=== PATIENT | female | born 1960 | race Caucasian/White ===

== ENCOUNTER 2024-07-09 20:27 | Inpatient (IN) | payer BC, MEDICARE, OTHER, SELFPAY ==
--- NOTE | 2024-07-09 20:30 | XR_ITS ---
Examination: AP chest single view Technique: AP portable upright chest single view Exam date and time: July 09, 20242 hrs. Indications: Shortness of breath wheezing today. Findings: Normal heart size Lungs are clear. The osseous structures are intact Impression: No active disease
--- NOTE | 2024-07-09 20:30 | PD.EDRME ---
Rapid Medical Screening Exam RME Arrival date/time: 07/09/24 20:27 Chief Complaint: Shortness of Breath/Dyspnea Time Seen by Provider: 07/09/24 20:30 Vital signs: Vital Signs Temperature 99.1 F 07/09/24 20:34 Pulse Rate 108 H 07/09/24 20:34 Respiratory Rate 22 H 07/09/24 20:34 Blood Pressure 129/69 07/09/24 20:34 Pulse Oximetry (%) 92 L 07/09/24 20:34 Oxygen Delivery Method Room Air 07/09/24 20:34 RME Narrative: 63-year-old female with history of 50-year smoker but no diagnosis of COPD, asthma using inhalers coming to the emergency department by ambulance after she has had increasing wheezing today despite multiple use of her inhalers. The patient states this is increased worse than her asthma attacks. She did not smoke today because she was having too much wheezing. The patient denies fevers, recent travel, and lower extremity swelling. She stated she had trouble sleeping last night. No nausea vomiting or diarrhea. She could not go out and walk her dogs today and thus when she came to the emergency department. No fevers, sick contacts, positive nonproductive cough that is making her wheezing worse, and no neck pain.
[2024-07-09 20:34] VITALS: BP 129/69; PULSE 108; RESP 22; TEMP 37.3; O2SAT 92
[2024-07-09 20:35] VITALS: PULSE 113; RESP 21; O2SAT 89; BMI 29.0
[2024-07-09] MEDS: Magnesium Sulfate 1 gm Ivpb 1 GM/100 ML BAG IV (20:48)
[2024-07-09] MEDS: MethylPREDNISolone SOD SUCC 62.5 MG/ML 2ML VIAL 125 MG IVP (20:48)
[2024-07-09 21:06] VITALS: PULSE 106; RESP 20; O2SAT 96
[2024-07-09] MEDS: ALBUTEROL/IPRATROPIUM (Duoneb) RT SOL 3 ML NEBU INH (21:09)
[2024-07-09 21:50] LABS: Basophils # (Auto) 0.1 Thou/mm3 (0.0-0.2); Basophils % (Auto) 1 % (0-2.5); Eosinophils # (Auto) 0.3 Thou/mm3 (0.0-0.5); Eosinophils % (Auto) 3 % (0-10); Hemoglobin 12.3 g/dL (12.0-16.0); Immature Granulocytes % (Auto) 0 % (0-0); Immature Granulocytes Auto 0.03 Thou/mm3 (0.00-0.00); Lymphocytes % (Auto) 19 % (10-50); Mean Corpuscular HGB Conc 33.2 g/dl (31.0-37.0); Mean Corpuscular Hemoglobin 29.7 pg (25.0-35.0); Mean Corpuscular Volume 89 fL (80-100); Monocytes # (Auto) 0.8 Thou/mm3 (0.0-0.8); Monocytes % (Auto) 7 % (0-12); Neutrophils # (Auto) 7.3 Thou/mm3 (1.8-7.7); Neutrophils % (Auto) 70 % (37-80); Nucleated Red Blood Cell % 0 /100 WBC (0); Platelet Count 190 Thou/mm3 (140-440); Red Blood Count 4.14 Miln/mm3 (4.00-5.20); White Blood Count 10.4 Thou/mm3 (3.6-11.0)
[2024-07-09 22:01] LABS: Respiratory Syncytial Virus Ag Negative (Negative)
[2024-07-09 22:21] LABS: B-Type Natriuretic Peptide 59 pg/mL (0-100)
[2024-07-09 22:22] LABS: Alanine Aminotransferase 13 U/L (10-49); Albumin, Serum 4.1 gm/dL (3.4-4.8); Albumin/Globulin Ratio 1.8 (1.2-2.2); Alkaline Phosphatase 88 U/L (46-116); Anion Gap 7 (7-16); Aspartate Amino Transferase 15 U/L (0-34); BUN/Creatinine Ratio 15 Ratio (12-20); Bilirubin,Total 0.3 mg/dL (0.3-1.2); Blood Urea Nitrogen 12 mg/dL (9-23); Calcium 9.6 mg/dL (8.3-10.6); Calcium (Corrected) 9.6 mg/dL (8.5-10.1); Carbon Dioxide 25.8 mMol/L (20.0-31.0); Chloride 110 mMol/L (98-107); Creatinine (Component) 0.8 mg/dL (0.6-1.3); Estimated Creatinine Clearance 75.5 mL/min (>60); Globulin 2.3 gm/dL (2.3-3.5); Glucose 116 mg/dL (74-106); Osmolality,Calculated 285 (275-295); Potassium 3.8 mMol/L (3.4-5.1); Sodium 143 mMol/L (136-145); Total Protein 6.4 gm/dL (5.7-8.2); Troponin I < 0.020 ng/mL (0.0-0.045); eGFR > 60 See Note
[2024-07-09 22:40] VITALS: BP 119/67; PULSE 102; RESP 27; O2SAT 96
--- NOTE | 2024-07-09 23:39 | XR_ITS ---
Examination: CTA chest with intravenous contrast 2-D reconstructions 3-D reconstructions, vascular Date and time of exam: July 10, 2024 0009 hrs. Indications: Shortness of breath chest pain today, diagnosis asthma COPD 10 years CTDI: vol (mGy) 13.86 DLP: (mGycm) 382 Technique: Multiple axial sections of the thorax have been obtained. 3 mm slice thickness, from below the hemidiaphragms to above the apices of the lungs. Mediastinal and lung density settings have been obtained. 2-D sagittal and coronal reconstructions. 3-D angiographic renderings, 3-D volume renderings, 3D post processing, vascular maximum intensity projections obtained. Contrast administered is 100 cc Isovue-370. Intravenous Low dose protocols were performed. One or more of the following dose reduction techniques were used; automated exposure control, adjustment of the mA and/or KV according to patient size, use of iterative reconstruction technique. Findings: No thoracic aortic aneurysmal dilatation Pulmonary artery segments are not enlarged No pulmonary artery emboli Nodule with dense calcification in the left upper lobe, 13 mm COPD with multiple areas of airspace destruction No lobar pneumonia no pulmonary edema or pleural disease No visualized liver or splenic lesion No gallstones Severe osteopenia with kyphosis dorsal spine Impression: COPD Negative for pulmonary artery emboli No pneumonia or pulmonary edema
[2024-07-09] MEDS: KETOROLAC INJ 30 MG/ML VIAL IVP (23:52)
[2024-07-10] VITALS (18 sets, daily range): BP systolic 95–137; BP diastolic 59–76; PULSE 87–120; RESP 13–34; TEMP 36.1–37.2; O2SAT 85–99; BMI 29.5
--- NOTE | 2024-07-10 01:01 | PC.NURSE ---
Pt ambulated to the rest room approx 50 ft and became short of breathing, wheezing, and tachypneic. pt desatted to 85-87% on room air. Pt placed on 2l NC saturation improved to 91-92%. Dr Calero informed and new orders provided. Rt called to bedside, verbal order for breathing tx given by .
[2024-07-10] MEDS: SODIUM CHLORIDE RT SOL 0.9% 3 ML NEBU INH (01:15)
[2024-07-10] MEDS: ALBUTEROL RT 2.5 MG/0.5 ML NEBU 10 MG INH (01:16)
[2024-07-10] MEDS: IPRATROPIUM RT 0.5 MG/ 2.5 ML NEBU 1 MG INH (01:16)
--- NOTE | 2024-07-10 01:23 | PRELIM_ITS ---
CT angiogram of the chest with intravenous contrast (axial sections with sagittal and coronal reforma ts) July 10, 2024 0009 hours Clinical History: 63 yo with asthma and shortness of breath. Techniq ue:Helical axial sections with sagittal and coronal reformats of the chest were obtained with intrave nous contrast. Iterative reconstruction technique was employed to reduce patient radiation exposure. 3D/MIP reconstructed images were also provided. Comparison: None.Findings:There is no filling defect within the pulmonary artery divisions to suggest pulmonary thromboembolism. The mediastinum demonstra noble no evidence of mass or lymphadenopathy. The thoracic aorta is unremarkable. There is no pericardi al effusion. Mild lung emphysema. No evidence of pleural effusion or pneumothorax.Partially calcified nodule in the left upper lobe measures 1.6 cm.Degenerative changes of the imaged portions of the spi ne. No acute fractures.The visualized upper abdominal viscera are unremarkable.Impression:No CT evide nce of pulmonary thromboembolism.Partially calcified nodule in the left upper lobe, consider correlat ion with PET.Mild lung emphysema. Report Electronically Signed By: Federico Murdock 07/10/2024 1:22:4 3 AM [EST]
--- NOTE | 2024-07-10 01:28 | EDNOTE_ITS ---
ED SOB =RME/HPI General Chief Complaint: Shortness of Breath/Dyspnea Stated Complaint: SOB Time Seen by Provider: 07/09/24 20:30 Arrival date/time: 07/09/24 20:27 RME / HPI RME / HPI Narrative: Dr. Nunez's Main ED Evaluation: 63-year-old female with history of 50-year smoker but no diagnosis of COPD, asthma using inhalers coming to the emergency department by ambulance after she has had increasing wheezing today despite multiple use of her inhalers. The patient states this is increased worse than her asthma attacks. She did not smoke today because she was having too much wheezing. The patient denies fevers, recent travel, chest pain, and lower extremity swelling. She stated she had trouble sleeping last night. No nausea vomiting or diarrhea. She could not go out and walk her dogs today and thus when she came to the emergency department. No fevers, sick contacts, positive nonproductive cough that is making her wheezing worse, and no neck pain. Related Data Home Medications ?Medication ?Instructions ?Recorded ?Confirmed levothyroxine 112 mcg tablet 112 mcg PO DAILY ##0 03/25/13 (Synthroid) Allergies Allergy/AdvReac Type Severity Reaction Status Date / Time acetaminophen Allergy Mild NAUSEA Verified 07/09/24 20:43 VOMTING hydrocodone Allergy Mild NAUSEA Verified 07/09/24 20:43 VOMTING codeine Allergy Unknown Verified 07/09/24 20:43 Review of Systems Review of Systems Systems Reviewed: All systems reviewed, normal except as documented Past Medical History Past Medical History CARDIAC: Negative Cardiac Disorders or Congestive Heart Failure RESPIRATORY: Positive Chronic Obstructive Pulmonary Disease (COPD) and Asthma GENITOURINARY: Negative Renal Disease ENDOCRINE: Negative Diabetes Mellitus Type 1 or Diabetes Mellitus Type 2 HEMATOLOGIC: Negative Sickle Cell Disease Social History SMOKING STATUS: Heavy (> 1 pack/day) ED Exam Narrative Physical exam: Patient acute distress, wheezing audibly at triage. General General appearance: Present alert, in distress and other Eye Eye exam: Present scleral icterus and other (No) Neck Neck exam: Present normal inspection and other; Absent meningismus Respiratory Respiratory exam: Present respiratory distress and prolonged expiratory phase; Absent wheezes, stridor or accessory muscle use Abdominal Exam Abdominal exam: Present soft; Absent distention, tenderness, guarding, rebound, rigidity or normal bowel sounds Extremities Exam Extremities exam: Absent normal inspection, tenderness, normal capillary refill, pedal edema, joint swelling or calf tenderness Neurological Exam Neurological exam: Present alert, oriented X3, CN II-XII intact and normal gait; Absent motor sensory deficit Skin Skin exam: Present warm; Absent normal color, cyanosis, diaphoresis, erythema, pallor or mottled Course Course Course Narrative: CXR is ordered for determining the etiology of shortness of breath. Quality Measures none Orders Category Date Time Status COVID-19 Screening Questionnaire NOW Care 07/10/24 01:[address] Screening NOW Care 07/09/24 23:39 Active Decision to Admit X1 Care 07/10/24 01:34 Active EKG (ED ONLY) *Do not use* NOW Care 07/09/24 20:35 Completed IV [Insert IV] STAT Care 07/09/24 20:[address] angio chest Stat Exams 07/09/24 23:39 Taken CXRP [XR chest 1V portable] Stat Exams 07/09/24 20:30 Completed EKG (ED Only) Stat Exams 07/09/24 20:34 Ordered BNP [B-Type Natriuretic Peptide] Stat Lab 07/09/24 21:42 Completed CBC Stat Lab 07/09/24 21:42 Completed CMP [Comprehensive Metabolic Panel] Stat Lab 07/09/24 21:42 Completed RSV [Respiratory Syncytial Virus Ag] Stat Lab 07/09/24 21:08 Completed Troponin I Stat Lab 07/09/24 21:42 Completed Troponin I Stat Lab 07/10/24 01:34 Ordered ALBUTEROL RT 0.5ml [Proventil Rt 0.5ml] Med 07/10/24 01:02 Discontinued 10 mg INH X1 ONE Albuterol/Ipratr Rt Danna [Duoneb Rt Danna] Med 07/09/24 21:00 Discontinued 3 ml INH X1 ONE Albuterol/Ipratr Rt Danna [Duoneb Rt Danna] Med 07/10/24 00:54 Discontinued 3 ml INH X1 ONE Ipratropium Marlow Rt Danna [Atrovent Rt Danna] Med 07/10/24 01:04 Discontinued 1 mg INH X1 ONE Ketorolac Inj [Toradol Inj] Med 07/09/24 23:43 Discontinued 30 mg IVP X1 ONE Magnesium Sulfate 1 gm Ivpb [Magnesium Sulfate Ivpb] Med 07/09/24 20:37 Discontinued 1 gm in 100 ml IV X1 MethylPREDNISolone.* [SoluMEDROL Inj] Med 07/09/24 20:33 Discontinued 125 mg IVP X1 ONE Sodium Chloride Rt Danna 0.9% [NS Rt Danna 0.9%] Med 07/10/24 01:02 Active 3 ml INH PRN PRN Vital Signs Vital signs: Vital Signs Temperature 99.1 F 07/09/24 20:34 Pulse Rate 108 H 07/09/24 20:34 Respiratory Rate 22 H 07/09/24 20:34 Blood Pressure 129/69 07/09/24 20:34 Pulse Oximetry (%) 92 L 07/09/24 20:34 Oxygen Delivery Method Room Air 07/09/24 20:34 Procedures -ED Smoking Cessation Time Spent Discussing Smoking Cessation w/Patient (min): 5 Patient Acknowledges Need for Cessation: Yes Additional Comments: The patient was counseled as to the multiple risks to their health from continued use of tobacco products. It was explained that continuing to smoke may lead to multiple short and long term acute care registered nurse negative health consequences, including but not limited to mouth/esophageal/lung cancer, COPD, and heart disease. The patient states she/he understands these risks and also understands the options and resources available to them to help them stop smoking. Nicotine replacement therapy, local hotlines, and local resources were discussed as viable options for helping them stop their tobacco use. The total time spent counseling the patient regarding tobacco cessation was 5 minutes. Shortness of Breath / Dyspnea MDM Narrative MDM Narrative:: Patient on arrival treated with 2-3 doses of 1 hour-long DuoNeb. Initially she felt better but upon getting up and walking to the bathroom she drops to 89% on room air. With oxygen she is 93% on 2 L. She is given Solu-Medrol and mag. She does have good airway movement but continues to wheeze. CT angio does not show PE. Chest x-ray without significant pneumonia. Will admit for COPD exacerbation. Patient is a 50-year pack smoker and likely undiagnosed at this time. Patient data External records reviewed:: [facility] previous records (Per chart review, patient has no previous ED visits or admissions to this facility.) Clinical information provided by:: patient Social determinants that could affect healthcare access:: substance use (Pt smokes cigarettes.) Patient has the following chronic illnesses:: COPD, asthma How is presenting disease/condition affected by chronic disease/condition?: exacerbated by Evaluation data The following diagnostics were reviewed and interpreted by me:: lab results, radiology exam(s) and EKG tracing(s) Lab and/or radiology exams considered but not ordered:: none Interpretation Summary: CBC is normal, CMP is normal, BNP is normal, Troponin is negative, RSV is negative, Bedside COVID and Influenza are negative, according to my interpretation. EKG done at 2053, sinus tachycardia, rate of 102, nonspecific ST-T changes in V2 and V3, no elevations or depressions, QTc: 370, No STEMI, no previous EKG available for depression, according to my interpretation. I have personally reviewed the radiology data and agree with the radiologist's interpretation below: Telerad Preliminary Report Draft Patient: JORDON ARTEAGA [employer]. Record#: [id number] Birthdate: 1960 Age/Sex: 63 / F Location: [facility] Attending Dr: Ordering Physician: Date of Service: Procedure(s): Accession Number(s): cc: ~ CT angiogram of the chest with intravenous contrast (axial sections with sagittal and coronal reformats) July 10, 2024 0009 hours Clinical History: 63 yo with asthma and shortness of breath. Technique:Helical axial sections with sagittal and coronal reformats of the chest were obtained with intravenous contrast. Iterative reconstruction technique was employed to reduce patient radiation exposure. 3D/MIP reconstructed images were also provided. Comparison: None. Findings: There is no filling defect within the pulmonary artery divisions to suggest pulmonary thromboembolism. The mediastinum demonstrates no evidence of mass or lymphadenopathy. The thoracic aorta is unremarkable. There is no pericardial effusion. Mild lung emphysema. No evidence of pleural effusion or pneumothorax. Partially calcified nodule in the left upper lobe measures 1.6 cm. Degenerative changes of the imaged portions of the spine. No acute fractures. The visualized upper abdominal viscera are unremarkable. Impression: No CT evidence of pulmonary thromboembolism. Partially calcified nodule in the left upper lobe, consider correlation with PET. Mild lung emphysema. Report Electronically Signed By: Federico Murdock 07/10/2024 1:22:43 AM [EST] ------- [facility] Report Signed Patient: JORDON ARTEAGA [employer]. Record#: [id number] Birthdate: 1960 Age/Sex: 63 / F Location: [facility] Attending Dr: Ordering Physician: No Nunez MD Date of Service: 07/09/24 Procedure(s): XR chest 1V portable Accession Number(s): [id number] cc: Ayaz Nava MD; No Nunez MD; Sharmila Mckeon MD~ Examination: AP chest single view Technique: AP portable upright chest single view Exam date and time: July 09, 2024 2042 hrs. Indications: Shortness of breath wheezing today. Findings: Normal heart size Lungs are clear. The osseous structures are intact Impression: No active disease Dictated By: Ayaz Nava MD Signed By: <Electronically signed by Ayaz Nava MD in [place]> 07/09/242111 Medications / Prescriptions Medications or Prescriptions considered but not ordered:: none Medication administrations:: Medication Administration History Sodium Chloride (Sodium Chloride Rt Danna 0.9% 3 Ml Nebu) 3 ml INH PRN PRN PRN Reason: SOLN Stop: 08/09/24 01:01 Last Admin: 07/10/24 01:15 Dose: 3 ml Documented By: ANTOINETTE Discontinued Medications Albuterol (Albuterol Rt 2.5 Mg/0.5 Ml Nebu) 10 mg INH X1 ONE Stop: 07/10/24 01:03 Last Admin: 07/10/24 01:16 Dose: 10 mg Documented By: ANTOINETTE Albuterol/Ipratropium (Albuterol/Ipratropium (Duoneb) Rt Danna 3 Ml Nebu) 3 ml INH X1 ONE Stop: 07/09/24 21:01 Last Admin: 07/09/24 21:09 Dose: 3 ml Documented By: ANTOINETTE Albuterol/Ipratropium (Albuterol/Ipratropium (Duoneb) Rt Danna 3 Ml Nebu) 3 ml INH X1 ONE Stop: 07/10/24 00:55 Last Admin: 07/10/24 01:02 Dose: Not Given Documented By: YAMILE Non-Admin Reason: Discontinued Magnesium Sulfate/Dextrose (Magnesium Sulfate Ivpb) 1 gm in 100 mls @ 100 mls/hr IV X1 ONE Stop: 07/09/24 21:36 Last Infusion: 07/09/24 21:59 Dose: Infused Documented By: Admin: 07/09/24 20:48 Dose: 100 mls/hr Documented By: YAMILE Ipratropium Marlow (Ipratropium Rt 0.5 Mg/ 2.5 Ml Nebu) 1 mg INH X1 ONE Stop: 07/10/24 01:05 Last Admin: 07/10/24 01:16 Dose: 1 mg Documented By: ANTOINETTE Ketorolac Tromethamine (Ketorolac Inj 30 Mg/Ml Vial) 30 mg IVP X1 ONE Stop: 07/09/24 23:44 Last Admin: 07/09/24 23:52 Dose: 30 mg Documented By: YONY Methylprednisolone Sodium Succinate (Methylprednisolone Sod Succ 62.5 Mg/Ml 2ml Vial) 125 mg IVP X1 ONE Stop: 07/09/24 20:34 Last Admin: 07/09/24 20:48 Dose: 125 mg Documented By: YAMILE see above Consultations Consultation(s) initiated? (list below): Yes Consultation #1 (Physician, Specialty, Details): Discussed case with [the resident physician, attending Dr. Tran] from Hospitalist service regarding admission. Discussed patients ED course, exam findings, labs, and radiology results. The Hospitalist [agrees] to accept the patient for admission. Time: 01:33 Diagnosis Shortness of Breath Differential Diagnosis: acute exacerbation of chronic obstructive airways disease, congestive heart failure, community acquired pneumonia, asthma with exacerbation and pulmonary embolism Most likely diagnosis given after review of the tests above:: see below Admission Indicated Admission indicated?: indicated Explain why admission is indicated or not indicated:: Patient hypoxic despite multiple 2-3 doses of DuoNebs, magnesium, and Solu- Medrol. Admission Request Was there a request for admission?: Yes Admission Attestation Admission request attestation: Discussed case with [] from Hospitalist service regarding admission. Discussed patients ED course, exam findings, labs, and radiology results. The Hospitalist [agrees,declines] to accept the patient for admission. Disposition Plan Disposition Plan: Admit Critical Care Time Critical Care Time Critical Care Time: Yes Total Critical Care Time (min.): 45 Attestation: The high probability of sudden, clinically significant deterioration in the patient?s condition required the highest level of my preparedness to intervene urgently. The services I provided to this patient were to treat and/or prevent clinically significant deterioration. Services included the following: chart data review, reviewing nursing notes and/or old charts, documentation time, senior product consultant collaboration regarding findings and treatment options, medication orders and management, direct patient care, vital sign assessments and ordering, interpreting and reviewing diagnostic studies and lab tests. Aggregate critical care time includes only time during which I was engaged in work directly related to the patient?s care, as described above, whether at bedside or elsewhere in the Emergency Department. It did not include time spent performing other reported procedures or the services of residents, students, nurses or physician assistants. Discharge Plan Plan Patient Disposition: Admit Acute Care w/in Hospital Patient condition on transfer: Stable Prescriptions/Referrals Prescriptions/Med Rec: No Action levothyroxine [Synthroid] 112 MCG tablet 112 mcg PO DAILY Qty: 0 Referrals: Sharmila Mckeon MD [Primary Care Provider] - In 1 week Problem List Clinical Impression: Acute and chronic respiratory failure with hypoxia, Asthma with exacerbation, History of cigarette smoking Patient/Caregiver Discharge Instructions Print Language: Malaysian Stand Alone Forms: Staci Award Info., Patient Portal Info Letter
--- NOTE | 2024-07-10 02:16 | ESHP_ITS ---
Documentation for date of: 07/10/24 [facility] History of Present Illness History of present illness: The patient is a 63-year-old female with a past medical history of asthma/COPD and hypothyroidism who presented to the ED on 07/09/2024 with difficulty breathing and wheezing that started a few hours prior to presentation. Patient was in her usual state of health until about 4 hours prior to coming to the ED when she had states that she was having increasing wheezing and shortness of breath. She reports that she had been out for dinner with her and might have been exposed to some cold, possible that she is in the environment and by the time she got back home she noted she was having more wheezing than his usual for her. She also endorses cough that is nonproductive, and not bothersome but present enough to be noted. She denies fever, chest pain or palpitations. The patient has a 40-yxsc-qaof smoking history and still smokes about a pack a day, states that she is trying to quit. For asthma/COPD she only uses her rescue albuterol inhaler and says she has been using for many years and has been able to control her symptoms effectively. ED course: In the ED, patient was afebrile and normotensive was noted to be saturating as low as 85% on room air. She was started on breathing treatments along treatments but wheezing was still persistent. She was initially on 3 L of oxygen and then 2 L, patient was noticeably desatting every time she tried to walk to the bathroom. CBC and CMP unremarkable. COVID influenza and RSV negative. Chest x-ray was negative for pneumonia and CTA negative for pulmonary embolism. The patient also received IV Solu-Medrol 125 mg mag sulfate 1 g in the ED and has been admitted for management of acute hypoxic respiratory failure and COPD exacerbation. PMHx-asthma/COPD, hypothyroidism PSHx-cervical discectomy Social ziboshp-15-rqze-year smoking history, social drinking, no illicit drugs Allergies-Tylenol, hydrocodone Home meds-levothyroxine, albuterol inhaler Review of Systems Review of Systems Narrative Review of Systems: GENERAL: Denies fevers/chills or diaphoresis. HEENT: Denies headache or visual/hearing changes. Denies nasal discharge. NEURO: Denies unusual weakness or difficulty speaking. CARDIO: Denies chest pain or palpitations. PULM: Admits shortness of breath, coughing and wheezing. GI: Denies abdominal pain, N/V/C/D/reflux/gas, bright red blood per rectum or melena. Reports having BMs. URO: Denies burning/itching/pain/urinary changes. MSK/EXT/SKIN: Denies joint/skeletal/muscle pain, issues/changes in upper or lower extremities, itchiness, or superficial pain. PSYCH: Cooperative, pleasant mood & affect. Exam Vital Signs Temp Pulse Resp BP Pulse Ox O2 Del Method O2 Flow Rate 99.1 F 87 16 119/67 94 L Room Air 2 07/09/24 20:34 07/10/24 01:16 07/10/24 01:13 07/09/24 22:40 07/10/24 01:13 07/10/24 00:58 07/10/24 01:13 Narrative Exam GENERAL: AAOX3 NEURO: CALIBRATION SPECIALIST grossly intact, moves extremities x4 HEENT: Moist mucosa. Eyes open, symmetrical, & clear CARDIO: No chest pain on palpation. Heart RRR, no obvious murmurs PULM: Coughing but not tachypneic. Diffuse wheezing in all lung crawley. GI: Abdomen soft, nondistended, no pain on palpation. BSx4 URO/SHAREPOINT SOLUTIONS DEVELOPER:: No further abnormalities noted. SKIN/MSK/EXT: No wounds/rashes/edema/amputations, no pain on palpation. Pedal pulses present B/L Results: Labs 07/10/24 01:39 07/09/24 21:42 Labs: Short CBC 07/09/24 Range/Units 21:42 WBC 10.4 (3.6-11.0) Thou/mm3 Hgb 12.3 (12.0-16.0) g/dL Hct 37.0 (36.0-46.0) % Plt Count 190 (140-440) Thou/mm3 BMP 07/09/24 21:42 Sodium 143 Potassium 3.8 Chloride 110 H Carbon Dioxide 25.8 BUN 12 Creatinine 0.8 Glucose 116 H Calcium 9.6 Cardiac Enzymes 07/09/24 Range/Units 21:42 Troponin I < 0.020 (0.0-0.045) ng/mL Liver Function 07/09/24 Range/Units 21:42 Total Bilirubin 0.3 (0.3-1.2) mg/dL AST 15 (0-34) U/L ALT 13 (10-49) U/L Alkaline Phosphatase 88 (46-116) U/L Albumin 4.1 (3.4-4.8) gm/dL Quality Measures Quality Measures none Advance care planning discussed with:: patient Medications Home Medications and Allergies Home Medications ?Medication ?Instructions ?Recorded ?Confirmed ?Type levothyroxine 112 mcg tablet 112 mcg PO DAILY ##0 03/25/13 07/10/24 History (Synthroid) Allergies Allergy/AdvReac Type Severity Reaction Status Date / Time acetaminophen Allergy Mild NAUSEA Verified 07/09/24 20:43 VOMTING hydrocodone Allergy Mild NAUSEA Verified 07/09/24 20:43 VOMTING codeine Allergy Unknown Verified 07/09/24 20:43 Visit Medications Albuterol/Ipratropium (Albuterol/Ipratropium (Duoneb) Rt Danna 3 Ml Nebu) 3 ml INH Q6HRRT [facility] Stop: 08/09/24 06:59 Albuterol/Ipratropium (Albuterol/Ipratropium (Duoneb) Rt Danna 3 Ml Nebu) 3 ml INH Q2HR PRN PRN Reason: SHORTNESS OF BREATH OR WHEEZE Stop: 08/09/24 02:05 Azithromycin (Azithromycin 250 Mg Tablet) 250 mg PO QDAY [facility] Stop: 07/15/24 08:59 Heparin Sodium (Porcine) (Heparin Sod Inj 5000 Unit/Ml Vial) 5,000 unit SC Q12HR JOSE Stop: 07/24/24 08:59 Ondansetron HCl (Ondansetron Inj 2 Mg/Ml Inj 2 Ml) 4 mg IV Q6H PRN; Protocol PRN Reason: NAUSEA OR VOMITING Stop: 08/09/24 02:02 Prednisone (Prednisone 20 Mg Tablet) 40 mg PO QDAY [facility] Stop: 07/15/24 08:59 Sodium Chloride (Sodium Chloride Rt Danna 0.9% 3 Ml Nebu) 3 ml INH PRN PRN PRN Reason: SOLN Stop: 08/09/24 01:01 Last Admin: 07/10/24 01:15 Dose: 3 ml Discontinued Medications Albuterol (Albuterol Rt 2.5 Mg/0.5 Ml Nebu) 10 mg INH X1 ONE Stop: 07/10/24 01:03 Last Admin: 07/10/24 01:16 Dose: 10 mg Albuterol/Ipratropium (Albuterol/Ipratropium (Duoneb) Rt Danna 3 Ml Nebu) 3 ml INH X1 ONE Stop: 07/09/24 21:01 Last Admin: 07/09/24 21:09 Dose: 3 ml Albuterol/Ipratropium (Albuterol/Ipratropium (Duoneb) Rt Danna 3 Ml Nebu) 3 ml INH X1 ONE Stop: 07/10/24 00:55 Last Admin: 07/10/24 01:02 Dose: Not Given Azithromycin (Azithromycin 250 Mg Tablet) 500 mg PO X1 ONE Stop: 07/10/24 02:07 Magnesium Sulfate/Dextrose (Magnesium Sulfate Ivpb) 1 gm in 100 mls @ 100 mls/hr IV X1 ONE Stop: 07/09/24 21:36 Last Infusion: 07/09/24 21:59 Dose: Infused Ipratropium [place] (Ipratropium Rt 0.5 Mg/ 2.5 Ml Nebu) 1 mg INH X1 ONE Stop: 07/10/24 01:05 Last Admin: 07/10/24 01:16 Dose: 1 mg Ketorolac Tromethamine (Ketorolac Inj 30 Mg/Ml Vial) 30 mg IVP X1 ONE Stop: 07/09/24 23:44 Last Admin: 07/09/24 23:52 Dose: 30 mg Methylprednisolone Sodium Succinate (Methylprednisolone Sod Succ 62.5 Mg/Ml 2ml Vial) 125 mg IVP X1 ONE Stop: 07/09/24 20:34 Last Admin: 07/09/24 20:48 Dose: 125 mg Assessment & Plan Assessment Summary: The patient is a 63-year-old female with a past medical history of asthma/COPD and hypothyroidism who presented to the ED on 07/09/2024 with difficulty breathing and wheezing that started a few hours prior to presentation. She has been admitted for management of acute hypoxic respiratory failure, secondary to COPD exacerbation. #Acute hypoxic respiratory failure #COPD exacerbation #History of COPD/asthma The patient presented with a couple hours of increasing wheezing and difficulty breathing. Patient has been out for dinner suspect that she might have been exposed to cold as well as other environmental factors/triggers and got home, noticed that she had more wheezing and it was increasingly difficult for her to breathe. She also endorsed a cough that is nonproductive but denies fever, chest pain or palpitations. Patient has a history of COPD, with a [id number] smoking history, still smokes and is trying to quit but only uses a rescue inhaler. Chest x-ray was negative as well as CTA. In the ED, patient received IV Solu-Medrol as well as multiple breathing treatments as presents with of oxygen. Plan: -Admit to med telemetry -Breathing treatment scheduled and as needed -Azithromycin 500 mg x 1 and then, 250 mg daily for 4 days -IV Solumedrol 40mg BID -Mucinex PRN -Incentive spirometry -Oxygen as needed #History of hypothyroidism Patient has a history of hypothyroidism and is on levothyroxine 112 mcg daily. Plan: -TSH -Resume home med Health maintenance: Dispo: MedTele Diet: Regular diet DVT: SC Heparin Natarajan: None Lines: Peripheral Med Rec: Pending, f/u PT: Not ordered Code: Full Case was discussed with attending physician, Dr Chelsea Thompson MD PGY-1 Attending Provider Attestation/Addendum Face to face evaluation was performed by me. I have personally seen and examined the patient. I discussed the assessment and plan with the entire medicine team. I reviewed available medical records, imaging studies, laboratory results. I agree with the above subjective data, objective findings, assessment and plan except as corrected by me or noted below Acute hypoxic respiratory failure Suspected COPD and /or asthma with exacerbation Wheezing and SOB - IV steroids, empiric aAbxs, scheduled breathing treatments, wean O2 as able to - Not sure if pure COPD or + asthma, needs Pulmonary follow up afer dc -CTA pending! rule out PE, no infiltrates on CTA upon my review. -DVT ppx
[2024-07-10 02:21] LABS: Troponin I < 0.020 ng/mL (0.0-0.045)
[2024-07-10] MEDS: AZITHROMYCIN 250 MG TABLET 500 MG PO (03:13)
[2024-07-10 05:59] LABS: Basophils % (Auto) 0 % (0-2.5); Eosinophils # (Auto) 0.1 Thou/mm3 (0.0-0.5); Eosinophils % (Auto) 1 % (0-10); Hematocrit 38.5 % (36.0-46.0); Hemoglobin 12.9 g/dL (12.0-16.0); Immature Granulocytes % (Auto) 0 % (0-0); Immature Granulocytes Auto 0.03 Thou/mm3 (0.00-0.00); Lymphocytes # (Auto) 0.6 Thou/mm3 (1.0-4.8); Lymphocytes % (Auto) 6 % (10-50); Mean Corpuscular HGB Conc 33.5 g/dl (31.0-37.0); Mean Corpuscular Hemoglobin 30.1 pg (25.0-35.0); Mean Corpuscular Volume 90 fL (80-100); Monocytes # (Auto) 0.1 Thou/mm3 (0.0-0.8); Monocytes % (Auto) 1 % (0-12); Neutrophils # (Auto) 8.4 Thou/mm3 (1.8-7.7); Neutrophils % (Auto) 91 % (37-80); Nucleated Red Blood Cell % 0 /100 WBC (0); Platelet Count 181 Thou/mm3 (140-440); RDW Standard Deviation 42.3 fL (36.4-46.3); Red Blood Count 4.29 Miln/mm3 (4.00-5.20); White Blood Count 9.3 Thou/mm3 (3.6-11.0)
[2024-07-10 07:12] LABS: Alanine Aminotransferase 17 U/L (10-49); Albumin, Serum 4.3 gm/dL (3.4-4.8); Albumin/Globulin Ratio 1.9 (1.2-2.2); Alkaline Phosphatase 97 U/L (46-116); Anion Gap 8 (7-16); Aspartate Amino Transferase 19 U/L (0-34); BUN/Creatinine Ratio 17 Ratio (12-20); Bilirubin,Total 0.4 mg/dL (0.3-1.2); Blood Urea Nitrogen 12 mg/dL (9-23); Calcium 9.6 mg/dL (8.3-10.6); Calcium (Corrected) 9.6 mg/dL (8.5-10.1); Carbon Dioxide 24.9 mMol/L (20.0-31.0); Chloride 108 mMol/L (98-107); Creatinine (Component) 0.7 mg/dL (0.6-1.3); Globulin 2.3 gm/dL (2.3-3.5); Glucose 159 mg/dL (74-106); Magnesium 2.6 mg/dL (1.6-2.6); Osmolality,Calculated 283 (275-295); Potassium 4.4 mMol/L (3.4-5.1); Sodium 141 mMol/L (136-145); Thyroid Stimulating Hormone 0.96 uIU/mL (0.55-4.78); Total Protein 6.6 gm/dL (5.7-8.2); eGFR > 60 See Note
--- NOTE | 2024-07-10 07:58 | EKG_ITS ---
[facility] Test Date: 2024-07-10 Pat Name: JORDON ARTEAGA [facility] Gender[facility] Senior Asset Manager: TRACY : 1960 Requested By: Yohannes Villagomez Order Number: [id number] Reading MD: Yohannes Villagomez Measurements Intervals [place] Rate: 97 P: 41 FL: 169 QRS: 41 QRSD: 81 T: 42 QT: 359 QTc: 456 Interpretive Statements SINUS RHYTHM LOW QRS VOLTAGE IN PRECORDIAL LEADS SEPTAL MYOCARDIAL INFARCTION , OF INDETERMINATE AGE No previous ECG available for comparison /store/S0/[id number].pdf
[2024-07-10] MEDS: ALBUTEROL/IPRATROPIUM (Duoneb) RT SOL 3 ML NEBU INH ×4 (09:23→18:55)
[2024-07-10] MEDS: ALPRazoLAM 0.25 MG TABLET PO (13:44)
[2024-07-10] MEDS: NICOTINE PATCH 14 MG/24 HR PATCH.TD24 TOP (13:45)
--- NOTE | 2024-07-10 13:46 | PD.RESPRO ---
Documentation for date of: 07/10/24 Subjective Subjective Interval history: Patient was seen and examined bedside. Reported that her shortness of breath improved. Denies fever, lower extremity swelling. Later at around 1 PM, nurse called reporting that patient was anxious and kicking tables in front of her. Patient was given nicotine patch and a dose of Xanax 1 Mg. Later on reevaluation, patient still have bilateral diffuse wheeze and heart rate is around 111 with saturation of 92-93 on 2 L oxygen. Added Xanax 0.5 Mg twice daily as needed. Exam Vital Signs Temp Pulse Resp BP Pulse Ox O2 Del Method O2 Flow Rate 96.9 F 98 13 95/63 99 Room Air 2 07/10/24 12:00 07/10/24 13:06 07/10/24 13:06 07/10/24 12:00 07/10/24 13:06 07/10/24 12:00 07/10/24 13:06 Narrative Exam General: Awake. Appears anxious and continuously moving her extremities. HEENT: Normocephalic, atraumatic, mucous membranes moist. Heart: Regular rate and rhythm, no murmurs. Lungs: Bilateral diffuse wheeze heard. Abdomen: Soft, nondistended, nontender, positive bowel sounds. ?No guarding or rebound tenderness. Neurologic: Alert and oriented x3, no gross neurological deficit, and patient able to move all 4 extremities. Extremities: No edema. Skin: No rash or ecchymoses. Objective Labs 07/11/24 04:45 07/11/24 04:45 Labs: Laboratory Results - last 24 hr 07/09/24 07/09/24 07/10/24 21:08 21:42 01:39 WBC 10.4 9.3 RBC 4.14 4.29 Hgb 12.3 12.9 Hct 37.0 38.5 MCV 89 90 MCH 29.7 30.1 MCHC 33.2 33.5 RDW Std Deviation 42.0 42.3 Plt Count 190 181 Neut % (Auto) 70 91 H Lymph % (Auto) 19 6 L [place] % (Auto) 7 1 Eos % (Auto) 3 1 Baso % (Auto) 1 0 Neut # (Auto) 7.3 8.4 H Lymph # (Auto) 2.0 0.6 L [place] # (Auto) 0.8 0.1 Eos # (Auto) 0.3 0.1 Baso # (Auto) 0.1 0.0 Immature Gran # (Auto) 0.03 H 0.03 H Absolute Nucleated RBC 0.00 0.00 Immature Gran % 0 0 Nucleated RBC % 0 0 Sodium 143 141 Potassium 3.8 4.4 D Chloride 110 H 108 H Carbon Dioxide 25.8 24.9 Anion Gap 7 8 BUN 12 12 Creatinine 0.8 0.7 Estim Creat Clear Calc 75.5 87.0 eGFR > 60 > 60 BUN/Creatinine Ratio 15 17 Glucose 116 H 159 H Calculated Osmolality 285 283 Calcium 9.6 9.6 Corrected Calcium 9.6 9.6 Magnesium 2.6 Total Bilirubin 0.3 0.4 AST 15 19 ALT 13 17 Alkaline Phosphatase 88 97 Troponin I < 0.020 < 0.020 B-Natriuretic Peptide 59 Total Protein 6.4 6.6 Albumin 4.1 4.3 Globulin 2.3 2.3 Albumin/Globulin Ratio 1.8 1.9 TSH 0.96 RSV Rapid Negative Quality Measures Quality Measures none Advance care planning discussed with:: patient Assessment & Plan Assessment Current Active Medications: Generic Name Dose Route Start Last Admin Trade Name Freq PRN Reason Stop Dose Admin Albuterol/Ipratropium 3 ml 07/10/24 07:00 07/10/24 13:06 Albuterol/Ipratropium (Duoneb) Rt Danna 3 Ml Nebu INH 08/09/24 06:59 3 ml Q6HRRT JOSE Administration Albuterol/Ipratropium 3 ml 07/10/24 02:06 07/10/24 09:23 Albuterol/Ipratropium (Duoneb) Rt Danna 3 Ml Nebu INH 08/09/24 02:05 3 ml Q2HR PRN Administration SHORTNESS OF BREATH OR WHEEZE Azithromycin 250 mg 07/11/24 09:00 Azithromycin 250 Mg Tablet PO 07/15/24 08:59 QDAY JOSE Guaifenesin 1 tab 07/10/24 03:12 Guaifenesin/P-Ephed Tablet PO 08/09/24 08:59 BID PRN COUGH Heparin Sodium (Porcine) 5,000 unit 07/10/24 09:00 07/10/24 09:06 Heparin Sod Inj 5000 Unit/Ml Vial SC 07/24/24 08:59 Not Given Q12HR [facility] Levothyroxine Sodium 112 mcg 07/10/24 06:00 07/10/24 06:08 Levothyroxine Sodium 112 Mcg Tablet PO 08/09/24 05:59 Not Given ACBR JOSE Methylprednisolone Sodium Succinate 40 mg 07/10/24 09:00 07/10/24 09:00 Methylprednisolone Sod Succ 40 Mg Vial IVP 07/17/24 08:59 40 mg BID JOSE Administration Ondansetron HCl 4 mg 07/10/24 02:03 Ondansetron Inj 2 Mg/Ml Inj 2 Ml IV 08/09/24 02:02 Q6H PRN NAUSEA OR VOMITING Protocol Sodium Chloride 3 ml 07/10/24 01:02 07/10/24 01:15 Sodium Chloride Rt Danna 0.9% 3 Ml Nebu INH 08/09/24 01:01 3 ml PRN PRN Administration SOLN Plan 63-year-old female with past medical history of hypothyroidism, chronic smoking history, COPD/asthma using inhalers presented to the hospital with chief complaints of shortness of breath and admitted for acute exacerbation of COPD. #Acute hypoxic respiratory failure # Secondary to COPD exacerbation #History of COPD/asthma -The patient presented with a couple hours of increasing wheezing and difficulty breathing. -She also endorsed a cough that is nonproductive but denies fever, chest pain or palpitations. -Patient has a history of COPD, with a [id number]-[id number] smoking history, still smokes 1 pack a day and is trying to quit but only uses a rescue inhaler. -Chest x-ray was negative as well as CTA. -In the ED, patient received IV Solu-Medrol as well as multiple breathing treatments as presents with of oxygen. Plan: -Admit to med telemetry -Breathing treatment scheduled and as needed -Azithromycin 500 mg x 1 and then, 250 mg daily for 4 days -IV Solumedrol 40mg BID -Mucinex PRN -Incentive spirometry -Oxygen as needed -Topical nicotine patch #History of hypothyroidism Patient has a history of hypothyroidism and is on levothyroxine 112 mcg daily. -TSH is within normal limits Plan: -Resumed home dose. # Anxiety -Patient was feeling anxious, likely due to hospitalization, sudden smoking cessation Plan -A topical nicotine patch was given -Xanax 0.5 Mg twice daily as needed medication is ordered Health maintenance: Dispo: MedTele Diet: Regular diet DVT: SC Heparin Natarajan: None Lines: Peripheral Code: Full Patient plan of care was discussed with the attending physician, Dr. Grewal and senior resident Dr. Bambi David, PGY1 Attending Provider Attestation/Addendum I reviewed labs, imaging, EKG, home medications and prior available records. Face to face evaluation was performed by me. I have personally examined the patient and discussed assessment and plan with the IM team. I reviewed the resident note and agree with the plan with exceptions as below. Acute hypoxic respiratory failure Active tobacco use COPD exacerbation Anxiety Hypothyroidism Social problem Dennise, scheduled and as needed Systemic corticosteroids Oxygen as needed, wean off as tolerated Counseled the patient regarding the importance of smoking cessation Discussed with social work case manager regarding financial issues Xanax as needed
[2024-07-10 14:50] LABS: Cardiac Risk Estimate 2.9 RATIO (3.7-5.6); Cholesterol 167 mg/dL (132-200); HDL Cholesterol 58 mg/dL (40-60); LDL Cholesterol,Calculated 100 mg/dL (0-130); Triglycerides 43 mg/dL (30-150)
--- NOTE | 2024-07-10 15:34 | PC.SS ---
Patient is alert/oriented. Patient states she lives with her . Patient is independent with ADL's. Patient admitted for acute hypoxic resp failure. Patient is currently not on 02. Patient may need to be evaluated for 02 needs. Patient states she drives herself to appointments. Pharmacy: [facility]. PCP: Dr. Mckeon. Last appt. November. D/c plan: return home. alt medical decision maker: spouse, Stanley.
[2024-07-10] MEDS: guaiFENesin/P-EPHED TABLET 1 TAB PO (15:42)
[2024-07-10] MEDS: HEPARIN SOD INJ 5000 UNIT/ML VIAL SC (20:46)
[2024-07-11] VITALS (8 sets, daily range): BP systolic 91–119; BP diastolic 60–73; PULSE 78–103; RESP 18–27; TEMP 36.1–36.5; O2SAT 89–99; BMI 29.5
[2024-07-11] MEDS: ALBUTEROL/IPRATROPIUM (Duoneb) RT SOL 3 ML NEBU INH ×2 (00:29→06:54)
[2024-07-11 05:49] LABS: Basophils % (Auto) 0 % (0-2.5); Eosinophils # (Auto) 0.1 Thou/mm3 (0.0-0.5); Eosinophils % (Auto) 0 % (0-10); Hematocrit 39.3 % (36.0-46.0); Hemoglobin 12.5 g/dL (12.0-16.0); Immature Granulocytes % (Auto) 1 % (0-0); Lymphocytes # (Auto) 1.1 Thou/mm3 (1.0-4.8); Lymphocytes % (Auto) 5 % (10-50); Mean Corpuscular HGB Conc 31.8 g/dl (31.0-37.0); Mean Corpuscular Hemoglobin 29.6 pg (25.0-35.0); Mean Corpuscular Volume 93 fL (80-100); Monocytes # (Auto) 0.6 Thou/mm3 (0.0-0.8); Monocytes % (Auto) 3 % (0-12); Neutrophils # (Auto) 18.8 Thou/mm3 (1.8-7.7); Neutrophils % (Auto) 91 % (37-80); Nucleated Red Blood Cell % 0 /100 WBC (0); Platelet Count 195 Thou/mm3 (140-440); RDW Standard Deviation 45.4 fL (36.4-46.3); Red Blood Count 4.23 Miln/mm3 (4.00-5.20); White Blood Count 20.7 Thou/mm3 (3.6-11.0)
[2024-07-11 06:16] LABS: Anion Gap 9 (7-16); BUN/Creatinine Ratio 18 Ratio (12-20); Blood Urea Nitrogen 14 mg/dL (9-23); Calcium 9.7 mg/dL (8.3-10.6); Carbon Dioxide 24.9 mMol/L (20.0-31.0); Chloride 108 mMol/L (98-107); Creatinine (Component) 0.8 mg/dL (0.6-1.3); Estimated Creatinine Clearance 76.1 mL/min (>60); Glucose 129 mg/dL (74-106); Magnesium 2.7 mg/dL (1.6-2.6); Osmolality,Calculated 285 (275-295); Potassium 4.2 mMol/L (3.4-5.1); Sodium 142 mMol/L (136-145); eGFR > 60 See Note
[2024-07-11] MEDS: AZITHROMYCIN 250 MG TABLET PO (08:24)
[2024-07-11] MEDS: HEPARIN SOD INJ 5000 UNIT/ML VIAL SC (08:28)
--- NOTE | 2024-07-11 08:52 | PC.SS ---
Follow up note: Patient may be discharged home today. SS spoke to nursing who tested patient for 02 needs. Patient does not need home 02. Room air sats were about 90
--- NOTE | 2024-07-11 10:25 | PC.PT ---
PT eval only. Patient is xI with bed mobility, transfers, and ambulation with no DME. Patient is at her baseline/PLOF.
--- NOTE | 2024-07-11 11:17 | ESDS_ITS ---
Planned Discharge Date 07/11/24 DS: Providers Provider Date of admission: 07/10/24 02:00 Primary care physician: Sharmila Mckeon MD Admitting Provider: Lavell Tran MD Attending Provider on Admission: Ilir Grewal MD Consults: 07/10/24 05:33 Referral Smoking Cessation Counseling Routine Comment: Smoking Cessation Education Needed 07/10/24 09:22 Referral Physical Therapy Routine Comment: Physician Instructions: Attending Provider on DC: Ethan David MD Discharging Provider: Ethan David MD DS: Diagnosis Problem List Completed Was Problem List Reviewed/Reconciled?: Yes Hospital Course Hospital Course Hospital course: The patient is a 63-year-old female with a past medical history of asthma/COPD and hypothyroidism who presented to the ED on 07/09/2024 with difficulty breathing and wheezing that started a few hours prior to presentation and admitted for acute hypoxic respiratory failure secondary to acute exacerbation of COPD. In the ED, patient was afebrile and normotensive was noted to be saturating as low as 85% on room air. She was started on breathing treatments. CBC and CMP unremarkable. COVID influenza and RSV negative. Chest x-ray was negative for pneumonia and CTA negative for pulmonary embolism. Patient was treated with nebulizations during the hospital stay and counseled about smoking cessation. Patient was discharged to home with the following medications and recommendations. -Follow-up with PCP within 1 week of discharge. If you do not have appointment, please follow-up with the [facility] with Dr. David. Call [phone] to make an appointment. -Counselled on smoking cessation -Recommended to follow up with PCP to get medications for smoking cessation if patient is ready to quit smoking -Start Trelegy Ellipta inhaler and continue levothyroxine 112mcg p.o. daily -Continue Prednisolone 40mg for 3 days -Take medications as prescribed. -Return to ED if symptoms persist or return #Acute hypoxic respiratory failure # Secondary to COPD exacerbation #History of COPD/asthma #History of hypothyroidism # Anxiety Patient plan of care was discussed with the attending physician, Dr. Uri David, PGY1 Time Spent with Patient Time attestation: Total time spent providing and/or coordinating discharge services: Time spent: Greater than 30 minutes Exam Vital Signs Temp Pulse Resp BP Pulse Ox O2 Del Method O2 Flow Rate 97.1 F 94 18 94/67 89 L Room Air 1 07/11/24 07:57 07/11/24 07:57 07/11/24 07:57 07/11/24 07:57 07/11/24 07:57 07/11/24 07:57 07/11/24 07:01 Narrative Exam General: Awake. HEENT: Normocephalic, atraumatic, mucous membranes moist. Heart: Regular rate and rhythm, no murmurs. Lungs: Bilateral occasional wheeze heard Abdomen: Soft, nondistended, nontender, positive bowel sounds. ?No guarding or rebound tenderness. Neurologic: Alert and oriented x3, no gross neurological deficit, and patient able to move all 4 extremities. Extremities: No edema. Skin: No rash or ecchymoses. Discharge Plan Plan Patient Disposition: HOME (Self Care) Patient condition on transfer: Stable Care Plan Goals: -Follow-up with PCP within 1 week of discharge. If you do not have appointment, please follow-up with the [facility] with Dr. David. Call [phone] to make an appointment. -Counselled on smoking cessation -Recommended to follow up with PCP to get medications for smoking cessation if patient is ready to quit smoking -Start Trelegy Ellipta inhaler and continue levothyroxine 112mcg p.o. daily -Continue Prednisolone 40mg for 3 days -Take medications as prescribed. -Return to ED if symptoms persist or return Prescriptions/Referrals Prescriptions/Med Rec: New Trelegy Ellipta 200-62.5-25 mcg blister with device 1 inh inhalation QDAY 30 Days Qty: 60 0RF prednisone 5 mg tablet 10 mg PO QDAY 3 Days Qty: 6 0RF Taper: Prednisone Taper 5 mg DAILY for 3 Days and 0 Hour Continued levothyroxine [Synthroid] 112 MCG tablet 112 mcg PO DAILY Qty: 0 Referrals: Sharmila Mckeon MD [Primary Care Provider] - Patient/Caregiver Discharge Instructions Meds to Beds: Yes Discharge Activity: resume usual activities Education Materials: Using an Inhaler, Chronic Lung Disease Quit Smoking, Coping with Smoking Withdrawal Print Language: Kosovan Stand Alone Forms: Staci Award Info., Patient Portal Info Letter Discharge Order Discharge Orders: Discharge (Routine); Ordered 12/20/24 Ordered By: Yohannes Villagomez Quality Discharge Quality Measures VTE prophylaxis Attestestation MD Attestation I reviewed labs, imaging, EKG, home medications and prior available records. Face to face evaluation was performed by me. I have personally examined the patient and discussed assessment and plan with the IM team. I reviewed the resident note and agree with the plan with exceptions as below. Acute hypoxic respiratory failure Active tobacco use COPD exacerbation Reactive leukocytosis Hypothyroidism Social problem Leukocytosis is likely reactive in the setting of steroid use Will discharge on Trelegy plus albuterol as needed. Steroid taper. Oxygen as needed, wean off as tolerated Counseled the patient regarding the importance of smoking cessation Time spent is 40 minutes. More than 50% of the time was spent on patient education and coordination of care.
--- NOTE | 2024-07-12 08:16 | PD.ADDDSCHGE ---
Addendum Discharge Addendum Date of report being addended: 07/11/24 Narrative: Attending's attestation: I reviewed labs, imaging, EKG, home medications and prior available records. Face to face evaluation was performed by me. I have personally examined the patient and discussed assessment and plan with the IM team. I reviewed the resident note and agree with the plan with exceptions as below. Acute hypoxic respiratory failure Active tobacco use COPD exacerbation Reactive leukocytosis Hypothyroidism Social problem Leukocytosis is likely reactive in the setting of steroid use Will discharge on Trelegy plus albuterol as needed. Steroid taper. Oxygen as needed, wean off as tolerated Counseled the patient regarding the importance of smoking cessation Time spent is 40 minutes. More than 50% of the time was spent on patient education and coordination of care.
== END 2024-07-11 12:07 | disposition home or self-care (01) | DRG 190 ==
LOC: SERX 07-10 01:36 → SERHOLD 07-10 02:37 → S2NX 07-10 05:15
PROVIDERS: Admitting Provider Internal Medicine; Emergency Provider Emergency Medicine; PCP Family Medicine; Visit Provider Student in an Organized Health Care Education/Training Program
DX: J44.1 Chronic obstructive pulmonary disease with (acute) exacerbation (principal); J96.21 Acute and chronic respiratory failure with hypoxia; E03.9 Hypothyroidism, unspecified; F41.9 Anxiety disorder, unspecified; D72.828 Other elevated white blood cell count; F17.210 Nicotine dependence, cigarettes, uncomplicated; Z79.51 Long term (current) use of inhaled steroids; Z79.890 Hormone replacement therapy; Z88.5 Allergy status to narcotic agent; T38.0X5A Adverse effect of glucocorticoids and synthetic analogues, initial encounter; Y92.230 Patient room in hospital as the place of occurrence of the external cause
CPT/HCPCS: 36415; 71045; 71275; 80048; 80053; 80061; 83735; 83880; 84443; 84484; 85025; 87400; 87634; 87811; 93005; 94640; 94644; 94664; 96365; 96375; 97161; 97162; 99291; A4649; A9270; J1643; J1885; J2919; J3475; Q9967; J1644

== ENCOUNTER → 2024-10-06 | Outpatient (CLI) | payer BC, SELFPAY ==
[2024-10-06 09:26] LABS: Basophils % (Auto) 1 % (0-2.5); Eosinophils # (Auto) 0.5 Thou/mm3 (0.0-0.5); Eosinophils % (Auto) 7 % (0-10); Hematocrit 39.2 % (36.0-46.0); Hemoglobin 12.7 g/dL (12.0-16.0); Immature Granulocytes % (Auto) 0 % (0-0); Immature Granulocytes Auto 0.01 Thou/mm3 (0.00-0.00); Lymphocytes # (Auto) 1.8 Thou/mm3 (1.0-4.8); Lymphocytes % (Auto) 26 % (10-50); Mean Corpuscular HGB Conc 32.4 g/dl (31.0-37.0); Mean Corpuscular Hemoglobin 29.8 pg (25.0-35.0); Mean Corpuscular Volume 92 fL (80-100); Monocytes # (Auto) 0.5 Thou/mm3 (0.0-0.8); Monocytes % (Auto) 7 % (0-12); Neutrophils # (Auto) 4.1 Thou/mm3 (1.8-7.7); Neutrophils % (Auto) 59 % (37-80); Nucleated Red Blood Cell % 0 /100 WBC (0); Platelet Count 256 Thou/mm3 (140-440); RDW Standard Deviation 40.5 fL (36.4-46.3); Red Blood Count 4.26 Miln/mm3 (4.00-5.20); White Blood Count 6.9 Thou/mm3 (3.6-11.0)
[2024-10-06 09:39] LABS: Glucose Estimated Average 114 mg/dL (80-131); Hemoglobin A1C 5.6 % Hgb (4.8-6.0)
[2024-10-06 09:50] LABS: Alanine Aminotransferase 20 U/L (10-49); Albumin/Globulin Ratio 1.8 (1.2-2.2); Alkaline Phosphatase 88 U/L (46-116); Anion Gap 8 (7-16); Aspartate Amino Transferase 18 U/L (0-34); BUN/Creatinine Ratio 20 Ratio (12-20); Bilirubin,Total 0.6 mg/dL (0.3-1.2); Blood Urea Nitrogen 16 mg/dL (9-23); Calcium 9.2 mg/dL (8.3-10.6); Calcium (Corrected) 9.2 mg/dL (8.5-10.1); Carbon Dioxide 27.5 mMol/L (20.0-31.0); Cardiac Risk Estimate 3.1 RATIO (3.7-5.6); Chloride 106 mMol/L (98-107); Cholesterol 182 mg/dL (132-200); Creatinine (Component) 0.8 mg/dL (0.6-1.3); Globulin 2.2 gm/dL (2.3-3.5); Glucose 97 mg/dL (74-106); HDL Cholesterol 59 mg/dL (40-60); LDL Cholesterol,Calculated 101 mg/dL (0-130); Osmolality,Calculated 282 (275-295); Potassium 4.4 mMol/L (3.4-5.1); Sodium 141 mMol/L (136-145); Thyroid Stimulating Hormone 2.98 uIU/mL (0.55-4.78); Total Protein 6.2 gm/dL (5.7-8.2); Triglycerides 108 mg/dL (30-150); eGFR > 60 See Note
== END | disposition home or self-care (01) ==
LOC: COPL 08:02
PROVIDERS: PCP Internal Medicine; Referring Provider Internal Medicine; Visit Provider Internal Medicine
DX: E03.9 Hypothyroidism, unspecified (principal); R91.1 Solitary pulmonary nodule; J44.9 Chronic obstructive pulmonary disease, unspecified; F41.9 Anxiety disorder, unspecified
CPT/HCPCS: 36415; 80053; 80061; 83036; 84443; 85025

== ENCOUNTER → 2024-10-17 | Outpatient (CLI) | payer BC, SELFPAY ==
--- NOTE | 2024-10-17 09:34 | XR_ITS ---
Examination: PA lateral chest 2 views TECHNIQUE: Upright PA lateral chest 2 views Exam date and time: October 09, 2024 1005 hours Compared to chest films dating to November 09, 2014 FINDINGS: Normal heart size Stable pulmonary nodule left upper lobe No interval pneumonia or pulmonary edema Increased AP dimension chest IMPRESSION: Mild to moderate hyperexpansion No interval pneumonia or pulmonary edema
== END | disposition home or self-care (01) ==
PROVIDERS: PCP Internal Medicine; Referring Provider Specialist; Visit Provider Specialist
DX: R91.8 Other nonspecific abnormal finding of lung field (principal)
CPT/HCPCS: 71046

== ENCOUNTER → 2025-02-05 | Outpatient (CLI) | payer BC, SELFPAY ==
[2025-02-05 17:28] LABS: Basophils # (Auto) 0.1 Thou/mm3 (0.0-0.2); Basophils % (Auto) 1 % (0-2.5); Eosinophils # (Auto) 0.3 Thou/mm3 (0.0-0.5); Eosinophils % (Auto) 4 % (0-10); Hematocrit 37.5 % (36.0-46.0); Hemoglobin 12.2 g/dL (12.0-16.0); Immature Granulocytes Auto 0.03 Thou/mm3 (0.00-0.00); Lymphocytes # (Auto) 2.4 Thou/mm3 (1.0-4.8); Lymphocytes % (Auto) 29 % (10-50); Mean Corpuscular HGB Conc 32.5 g/dl (31.0-37.0); Mean Corpuscular Hemoglobin 30.3 pg (25.0-35.0); Mean Corpuscular Volume 93 fL (80-100); Monocytes # (Auto) 0.6 Thou/mm3 (0.0-0.8); Monocytes % (Auto) 7 % (0-12); Neutrophils # (Auto) 5.1 Thou/mm3 (1.8-7.7); Neutrophils % (Auto) 60 % (37-80); Nucleated Red Blood Cell # 0.00 Thou/mm3 (0.00-0.00); Nucleated Red Blood Cell % 0 /100 WBC (0); Platelet Count 231 Thou/mm3 (140-440); RDW Standard Deviation 41.5 fL (36.4-46.3); Red Blood Count 4.03 Miln/mm3 (4.00-5.20); White Blood Count 8.5 Thou/mm3 (3.6-11.0)
[2025-02-05 17:38] LABS: Glucose Estimated Average 111 mg/dL (80-131); Hemoglobin A1C 5.5 % Hgb (4.8-6.0)
[2025-02-05 17:45] LABS: B-Type Natriuretic Peptide 89 pg/mL (0-100)
[2025-02-05 17:58] LABS: Alanine Aminotransferase 18 U/L (10-49); Albumin, Serum 4.0 gm/dL (3.4-4.8); Albumin/Globulin Ratio 1.7 (1.2-2.2); Alkaline Phosphatase 84 U/L (46-116); Anion Gap 8 (7-16); Aspartate Amino Transferase 17 U/L (0-34); BUN/Creatinine Ratio 23 Ratio (12-20); Bilirubin,Total 0.3 mg/dL (0.3-1.2); Blood Urea Nitrogen 18 mg/dL (9-23); Calcium 9.2 mg/dL (8.3-10.6); Calcium (Corrected) 9.2 mg/dL (8.5-10.1); Carbon Dioxide 26.3 mMol/L (20.0-31.0); Chloride 111 mMol/L (98-107); Creatinine (Component) 0.8 mg/dL (0.6-1.3); Free T4 (Free Thyroxine) 1.35 ng/dL (0.89-1.76); Globulin 2.4 gm/dL (2.3-3.5); Glucose 101 mg/dL (74-106); Osmolality,Calculated 290 (275-295); Potassium 4.0 mMol/L (3.4-5.1); Sodium 145 mMol/L (136-145); Thyroid Stimulating Hormone 1.88 uIU/mL (0.55-4.78); Total Protein 6.4 gm/dL (5.7-8.2); eGFR > 60 See Note
== END | disposition home or self-care (01) ==
LOC: COPL 16:35
PROVIDERS: PCP Internal Medicine; Referring Provider Internal Medicine; Visit Provider Internal Medicine
DX: R60.9 Edema, unspecified (principal); E03.9 Hypothyroidism, unspecified; J44.9 Chronic obstructive pulmonary disease, unspecified
CPT/HCPCS: 36415; 80053; 83036; 83880; 84439; 84443; 85025